=== PATIENT | male | born 1995 | race Caucasian/White ===

== ENCOUNTER 2016-12-16 20:40 | Emergency (ER) | payer OTHER ==
[2016-12-16 20:56] VITALS: BP 125/62
--- NOTE | 2016-12-16 21:20 | UC ---
Skin Complaint HPI - HPI Summary HPI Summary: Pt present with c/o sudden onset of tender blisters on face that are tender and "itchy". Pt reports that the blisters have drained rebol[place] serous fluid. Pt reports that the blisters are beginning to spread. - History of Current Complaint Chief Complaint: UCSkin Time Seen by Provider: 12/16/16 21:08 Stated Complaint: SKIN COMPLAINT Hx Obtained From: Patient Onset/Duration: Sudden Onset, Lasting Days, Worse Since - onset Skin Exposure Onset/Duration: Days Ago Timing: Constant Onset Severity: Mild Current Severity: Mild Location: Face Character: Pruritus, Redness Aggravating Factor(s): Touch Alleviating Factor(s): Unknown Associated Signs & Symptoms: Positive: Drainage - [place], Tenderness - Allergy/Home Medications Allergies/Adverse Reactions: Allergies Allergy/AdvReac Type Severity Reaction Status Date / Time No Known Allergies Allergy Verified 12/16/16 20:50 Home Medications: Home Medications Ibuprofen TAB* [Advil TAB*] 400 mg PO Q6H PRN 12/16/16 [History Confirmed ] Review of Systems Constitutional: Negative Skin: Other - erythematous, tender areas ~ 1 - 2 cm in diameter areas with dried crusted serous fluid Eyes: Negative ENT: Negative Respiratory: Negative Cardiovascular: Negative Gastrointestinal: Negative Genitourinary: Negative Motor: Negative Neurovascular: Negative Musculoskeletal: Negative Neurological: Negative Psychological: Negative Is Patient Immunocompromised?: No All Other Systems Reviewed And Are Negative: Yes PMH/Surg Hx/FS Hx/Imm Hx Previously Healthy: Yes - Surgical History Surgical History: None - Family History Known Family History: Positive: Cardiac Disease - Social History Occupation: Student - [employer] Lives: Dormitory/Roommates Alcohol Use: Weekly Alcohol Amount: 2 times a week Substance Use Type: None Smoking Status (MU): Never Smoked Tobacco Have You Smoked in the Last Year: No Physical Exam Triage Information Reviewed: Yes Appearance: Well-Appearing Vital Signs: Initial Vital Signs Temp 99.1 F 12/16/16 20:51 Pulse 81 12/16/16 20:51 Resp 16 12/16/16 20:51 BP 125/62 12/16/16 20:51 Pulse Ox 99 12/16/16 20:51 Vital Signs Reviewed: Yes Eye Exam: Normal ENT Exam: Normal Neck exam: Normal Respiratory Exam: Normal Cardiovascular Exam: Normal Musculoskeletal Exam: Normal Neurological Exam: Normal Psychological Exam: Normal Skin Exam: Other - multiple erythematous tender crusted areas on left side of face Course/Dx - Differential Diagnoses - Skin Complaint Differential Diagnoses: Impetigo, Tinea - Diagnoses Provider Diagnoses: impetigo Discharge - Discharge Plan Condition: Stable Disposition: HOME Prescriptions: DOXYcycline CAP(*) [DOXYcycline 100MG CAP(*)] 100 mg PO Q12H #10 cap Mupirocin 2% OINT* [Bactroban 2 % Oint*] 1 applic TOPICAL Q12H #1 tube Patient Education Materials: Impetigo (ED) Referrals: [facility] [Outside] - If Needed
[2016-12-16] MEDS ORDERED: DOXYcycline CAP(*) 100 MG PO ONE (21:24)
== END 2016-12-16 21:29 | disposition home or self-care (01) ==
LOC: UCCORT 20:40
DX: L01.00 Impetigo, unspecified (principal); X58.XXXA Exposure to other specified factors, initial encounter
CPT/HCPCS: 99212; A9270-GY; G0463